=== PATIENT | female | born 1970 | race Hispanic/Latino ===

== ENCOUNTER 2020-08-20 07:21 | Emergency (ER) | payer SELFPAY ==
[2020-08-20 07:59] LABS: BASOPHILS % (AUTO) 0.2 % (0.0-5.0); EOSINOPHILS % (AUTO) 1.2 % (0.0-8.0); HEMATOCRIT 28.4 % (36-48); LYMPHOCYTES % (AUTO) 7.7 % (21.0-51.0); MEAN CORPUSCULAR HEMOGLOBIN 18.6 pg (27.0-33.0); MEAN CORPUSCULAR HGB CONC 28.5 g/dL (32.0-36.0); MEAN CORPUSCULAR VOLUME 65.1 fL (79-99); MONOCYTES % (AUTO) 6.6 % (3.0-13.0); NEUTROPHILS % (AUTO) 82.3 % (40.0-77.0); PLATELET COUNT (AUTO) 365 K/uL (130-400); RED BLOOD CELL COUNT(AUTO) 4.36 MIL/uL (4.00-5.50); RED CELL DISTRIBUTION WIDTH 19.8 % (11.0-15.5); WHITE BLOOD COUNT (AUTO) 13.3 K/uL (4.8-10.8)
[2020-08-20 08:14] VITALS: BP 134/73
[2020-08-20 08:17] LABS: APPEARANCE,URINE Clear (CLEAR); BILIRUBIN,URINE Negative (NEGATIVE); COLOR,URINE Yellow (YELLOW); GLUCOSE, URINE (UA) Negative (NEGATIVE); KETONES,URINE Negative (NEGATIVE); LEUKOCYTE ESTERASE ,URINE Negative (NEGATIVE); NITRATE,URINE Negative (NEGATIVE); OCCULT BLOOD,URINE Negative (NEGATIVE); PH,URINE 7.5 (5.0-8.0); PROTEIN,URINE POS 1+ mg/dL (NEGATIVE)
[2020-08-20 08:19] LABS: INR 0.9 (0.85-1.15); PROTHROMBIN TIME 9.9 SEC (9.6-11.6)
[2020-08-20 08:21] LABS: PARTIAL THROMBOPLASTIN TIME 21.1 SEC (26.3-35.5)
[2020-08-20 08:23] LABS: ALBUMIN 3.5 g/dL (3.5-5.0); BILIRUBIN,TOTAL 0.4 mg/dL (0.2-1.0); CREATININE 0.6 mg/dL (0.5-1.5); POTASSIUM 3.9 mmol/L (3.5-5.1); TOTAL PROTEIN, SERUM 7.3 g/dL (6.0-8.3)
[2020-08-20 08:25] LABS: AMPHET/METH SCREEN,URINE NEGATIVE (NEGATIVE); BARBITURATE SCREEN, URINE NEGATIVE (NEGATIVE); BENZODIAZEPINES SCREEN,URINE NEGATIVE (NEGATIVE); CANNABINOID SCREEN,URINE NEGATIVE (NEGATIVE); COCAINE SCREEN,URINE NEGATIVE (NEGATIVE); OPIATE SCREEN,URINE NEGATIVE (NEGATIVE); PHENCYCLIDINE SCREEN,URINE NEGATIVE (NEGATIVE)
[2020-08-20 08:35] LABS: BACTERIA,URINE Rare /HPF (None Seen); RBC,URINE 0-1 /HPF (0-1); SQUAMOUS EPITHELIAL CELL,UR Rare /HPF (0-2); WBC,URINE 0-1 /HPF (0-1)
[2020-08-20] MEDS ORDERED: IOHEXOL-350 75 ML VIAL IV ONE (08:35)
[2020-08-20] MEDS ORDERED: SOLU-MEDROL 125MG VIAL ONE (08:39)
[2020-08-20] MEDS ORDERED: DiphenhydrAMINE HCL 50 MG/ML VIAL ONE (08:39)
[2020-08-20 12:00] VITALS: BP 135/74
[2020-08-20 12:17] VITALS: BP 145/74
[2020-08-20 15:06] VITALS: BP 135/74
== END 2020-08-20 15:10 | disposition home or self-care (01) ==
LOC: EDH 07:21 → EDSEX 07:21 → EDH 15:10
DX: F44.9 Dissociative and conversion disorder, unspecified (principal); E11.9 Type 2 diabetes mellitus without complications; Z79.52 Long term (current) use of systemic steroids
CPT/HCPCS: 36415; 70450; 70496; 70498; 70551; 71045; 80053; 80305; 81001; 84484; 85025; 85610; 85730; 93005; 96374; 96375; 99285; J1200; J2930; Q9967